=== PATIENT | female | born 2000 | race African-American/Black ===

== ENCOUNTER 2022-02-23 08:45 | Emergency (ER) | payer MEDICAID ==
[~2022-02-23] VITALS: Ht 175.3 cm; Wt 106.8 kg
[~2022-02-23 08:45] MED LIST: ACET-1008 PO; IBUP-1572 PO; IBUP-1984 PO; IBUP-812 PO; NAPR220C15 PO; NO HOME MEDS; PANT-47 PO
[2022-02-23 08:53] VITALS: BP 122/76
[2022-02-23 09:28] LABS: ALANINE AMINOTRANSFERASE 28 U/L (12-78); ALBUMIN 3.8 G/DL (3.4-5.0); ALKALINE PHOSPHATASE 63 IU/L (46-116); ANION GAP 10 (8-16); ASPARTATE AMINO TRANSFERASE 17 U/L (10-37); BILIRUBIN,TOTAL 0.2 MG/DL (0.1-1.0); BLOOD UREA NITROGEN 12 MG/DL (7-18); CALCIUM 8.7 MG/DL (8.5-10.1); CHLORIDE 104 MMOL/L (99-107); CREATININE 0.92 MG/DL (0.40-0.90); GLUCOSE 105 MG/DL (70-104); POTASSIUM 3.7 MMOL/L (3.5-5.1); SODIUM 138 MMOL/L (135-145); TOTAL CARBON DIOXIDE 24.2 MMOL/L (24-32); TOTAL PROTEIN 7.5 G/DL (6.4-8.2); eGFR > 90 ML/MIN
[2022-02-23 09:34] LABS: BASOPHILS % (AUTO) 0.5 % (0-1); EOSINOPHILS % (AUTO) 0.5 % (0-6); HEMATOCRIT 39.5 % (35.0-45.0); HEMOGLOBIN 13.4 g/dl (12.0-16.0); LYMPHOCYTES # (AUTO) 1.3 X10'3 (1.1-4.8); LYMPHOCYTES % (AUTO) 23.8 % (21-51); MEAN CORPUSCULAR HEMOGLOBIN 31.3 PG (27.0-31.0); MEAN CORPUSCULAR VOLUME 92.1 FL (78-98); MEAN PLATELET VOLUME 7.9 FL (7.4-10.4); MONOCYTES # (AUTO) 0.4 X10'3 (0-0.9); MONOCYTES % (AUTO) 7.3 % (2-12); NEUTROPHILS # (AUTO) 3.6 X10'3 (1.8-7.7); NEUTROPHILS % (AUTO) 67.9 % (42-75); PLATELET COUNT 259 X10'3 (140-440); RED BLOOD COUNT 4.29 X10'6 (4.20-5.60); RED CELL DISTRIBUTION WIDTH 13.9 % (11.5-14.5); WHITE BLOOD COUNT 5.3 X10'3 (4.5-11.0)
== END 2022-02-23 09:50 | disposition home or self-care (01) ==
LOC: ER 08:46
DX: R07.9 Chest pain, unspecified (principal); Z79.1 Long term (current) use of non-steroidal anti-inflammatories (NSAID)
CPT/HCPCS: 36415; 71045; 80053; 83880; 84484; 85025; 93005; 99285

== ENCOUNTER 2023-01-26 21:24 | Emergency (ER) | payer MEDICAID ==
[~2023-01-26] VITALS: Ht 172.7 cm; Wt 109.1 kg
[2023-01-26 21:45] VITALS: BP 143/86
[2023-01-26 22:19] LABS: CLARITY,URINE SLIGHTLY CLOUDY (Clear); COLOR,URINE YELLOW (Yellow); GLUCOSE, URINE NEGATIVE (Neg); KETONES,URINE NEGATIVE (Neg); LEUKOCYTE ESTERASE ,URINE NEGATIVE (Neg); NITRITES, URINE NEGATIVE (Neg); OCCULT BLOOD,URINE SMALL (Neg); PROTEIN,URINE NEGATIVE (Neg); UROBILINOGEN,URINE 0.2 E.U/dL (0.2-1.0)
[2023-01-26 22:20] LABS: URINE HCG NEGATIVE (NEG)
[2023-01-26 22:21] LABS: UA COLLECTION TYPE CLN CATCH MIDSTREAM
[2023-01-26 22:30] LABS: BACTERIA,URINE 1+ /HPF (Neg); MUCUS STRANDS FEW /LPF (Neg); SQUAMOUS EPITHELIAL CELL,UR MODERATE /LPF (FEW); WBC,URINE 0-4 /HPF (0-4)
[2023-01-26] MEDS ORDERED: ketorolac trometh inj. 60 MG/2 ML VIAL IM ONE (22:50)
== END 2023-01-26 23:30 | disposition home or self-care (01) ==
LOC: ER 21:25
DX: R10.2 Pelvic and perineal pain (principal); R35.0 Frequency of micturition; Z79.899 Other long term (current) drug therapy
CPT/HCPCS: 76830; 76856; 81001; 81025; 93976; 96372; 99285; J1885